=== PATIENT | male | born 1995 | race Asian ===

== ENCOUNTER 2020-12-15 19:21 | Emergency (ER) | payer OTHER ==
[~2020-12-15] VITALS: Ht 185.4 cm; Wt 113.2 kg
[2020-12-15 19:42] VITALS: TEMP 97.5
[2020-12-15 21:05] VITALS: BP 132/78; PULSE 76
== END 2020-12-15 21:05 | disposition home or self-care (01) ==
LOC: COL.ER 19:21
DX: L02.01 Cutaneous abscess of face (principal)